=== PATIENT | female | born 1985 | race Caucasian/White ===

== ENCOUNTER → 2018-02-13 | Outpatient (CLI) | payer BC ==
--- NOTE | 2018-02-13 12:18 | RADIOLOGY REPORT (SQ) ---
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 TECHNIQUE: Multiplanar imaging includes non-contrasted T1, T2, FLAIR, diffusion with ADC map and pos t gadolinium contrast sequences. Additional thin slice images with and without gadolinium contrast a cquired of the orbits. Images stored on PACS. CONTRAST TYPE AND DOSE: 15 mL Dotarem. RENAL FUNCTION: None required. The patient is less than 50 years old. LIMITATIONS: None. FINDINGS: ANATOMY: No anomalies. Normal vascular flow voids. Pituitary fossa normal. CSF SPACES: Normal in size and contour. CEREBRUM: Sulci and gyri normal in size and contour. Normal white matter signal on FLAIR imaging. N o hemorrhage. No edema, masses or mass effect. No enhancing lesions. POSTERIOR FOSSA: No signal alteration. No hemorrhage. No edema, masses or mass effect. Internal juli tory canals, cerebello-pontine angles, mastoids normal. No enhancing lesions. DIFFUSION IMAGING: Negative for acute or sub-acute infarction. ORBITS: No masses. Globes normal. Extraocular muscles and optic nerves normal. Orbital fat clear. No inflammatory changes or enhancement. PARANASAL SINUSES: No fluid levels. Mucosa normal. OTHER: No other significant finding. IMPRESSION: NORMAL MRI OF THE BRAIN AND ORBITS WITHOUT AND WITH INTRAVENOUS GADOLINIUM CONTRAST. TECHNICAL DOCUMENTATION: JOB ID: [id number] [employer]- All Rights Reserved Reading location - IP/workstation name: [facility]
== END ==
LOC: RAD 10:46
PROVIDERS: ATTEND Ophthalmology
DX: H47.10 Unspecified papilledema (principal)
CPT/HCPCS: 70553; A9576

== ENCOUNTER → 2018-05-22 | Day surgery (SDC) | payer BC | LOC: RAD 07:55 | PROVIDERS: ATTEND Psychiatry & Neurology Neurology | DX: R69 Illness, unspecified (principal) ==

== ENCOUNTER 2018-06-14 07:52 | Day surgery (SDC) | payer BC ==
[2018-06-14 08:51] LABS: INTERNATIONAL RATION (INR) 0.91; PARTIAL THROMBOPLASTIN TIME 29.3 SEC (23.5-35.8); PROTHROMBIN TIME 12.7 SEC (11.4-15.4)
[2018-06-14 11:09] LABS: ABSOLUTE EOSINOPHILS # (AUTO) 0.3 10^3/uL (0.0-0.6); ABSOLUTE LYMPHOCYTES (AUTO) 1.9 10^3/uL (0.5-4.7); ABSOLUTE MONOCYTES (AUTO) 0.5 10^3/uL (0.1-1.4); ABSOLUTE NEUT (AUTO) 4.2 10^3/uL (1.7-8.2); BASOPHILS % (AUTO) 0.3 % (0-2); EOSINOPHILS % (AUTO) 4.3 % (0-6); HEMATOCRIT 35.6 % (36.0-47.0); MEAN CORPUSCULAR HEMOGLOBIN 29.2 pg (27.0-33.4); MEAN CORPUSCULAR HGB CONC 33.7 g/dL (32.0-36.0); MEAN CORPUSCULAR VOLUME 87 fl (80-97); MONOCYTES % (AUTO) 7.2 % (3-13); PLATELET COUNT 248 10^3/uL (150-450); RED BLOOD COUNT 4.11 10^6/uL (3.72-5.28); RED CELL DISTRIBUTION WIDTH 14.6 % (11.5-14.0); SEGMENTED NEUTROPHILS % (AUTO) 60.2 % (42-78); TOTAL CELLS COUNTED % (AUTO) 100 %; WHITE BLOOD COUNT 6.9 10^3/uL (4.0-10.5)
--- NOTE | 2018-06-14 11:50 | RADIOLOGY REPORT (SQ) ---
EXAM DESCRIPTION: LUMBAR PUNCTURE; FLUORO/NEEDLE PLACEMENT/SPINE COMPLETED DATE/TIME: 06/14/2018 10:14 am REASON FOR STUDY: BENIGN INTRACRANIAL HYPERTENSION COMPARISON: None. FLUOROSCOPY TIME: 0.1 minutes of fluoroscopy was used. 1 Images saved to PACS. TECHNIQUE: Fluoroscopic guided lumbar puncture with opening and closing pressures. LIMITATIONS: None. PROCEDURE: After written consent and assessment were obtained, the patient was brought into the fluo roscopy room and placed prone on the table. The patient's lower back was prepped in a sterile fashion and an entry site was selected under live fluoroscopic guidance. The entry site was anesthetized wit h 1% lidocaine. A 20 gauge needle was advanced through the skin and into the thecal sac at the level of L 3 -L 4 . An opening pressure of 32 units was obtained. After approximately 26 ml of CSF was drai veena, a closing pressure of 17 units was obtained. The needle was removed and a sterile bandage was pl aced of the site. Specimens were sent to the lab for testing. A fluoroscopic spot image was saved to PACS confirming level access. FINDINGS: Clear CSF IMPRESSION: Lumbar puncture under fluoroscopy. No immediate complication. COMMENT: Patient medication list reviewed: Or Quality ID [id number]: Final reports for procedures using fluoroscopy that document radiation exposure indic es, or exposure time and number of fluorographic images (if radiation exposure indices are not availa ble) TECHNICAL DOCUMENTATION: Job ID: [id number] [employer]- All Rights Reserved Reading location - IP/workstation name: [email or web address] [id number]
--- NOTE | 2018-06-14 11:50 | RADIOLOGY REPORT (SQ) ---
EXAM DESCRIPTION: LUMBAR PUNCTURE; FLUORO/NEEDLE PLACEMENT/SPINE COMPLETED DATE/TIME: 06/14/2018 10:14 am REASON FOR STUDY: BENIGN INTRACRANIAL HYPERTENSION COMPARISON: None. FLUOROSCOPY TIME: 0.1 minutes of fluoroscopy was used. 1 Images saved to PACS. TECHNIQUE: Fluoroscopic guided lumbar puncture with opening and closing pressures. LIMITATIONS: None. PROCEDURE: After written consent and assessment were obtained, the patient was brought into the fluo roscopy room and placed prone on the table. The patient's lower back was prepped in a sterile fashion and an entry site was selected under live fluoroscopic guidance. The entry site was anesthetized wit h 1% lidocaine. A 20 gauge needle was advanced through the skin and into the thecal sac at the level of L 3 -L 4 . An opening pressure of 32 units was obtained. After approximately 26 ml of CSF was drai veena, a closing pressure of 17 units was obtained. The needle was removed and a sterile bandage was pl aced of the site. Specimens were sent to the lab for testing. A fluoroscopic spot image was saved to PACS confirming level access. FINDINGS: Clear CSF IMPRESSION: Lumbar puncture under fluoroscopy. No immediate complication. COMMENT: Patient medication list reviewed: Or Quality ID [id number]: Final reports for procedures using fluoroscopy that document radiation exposure indic es, or exposure time and number of fluorographic images (if radiation exposure indices are not availa ble) TECHNICAL DOCUMENTATION: Job ID: [id number] [employer]- All Rights Reserved Reading location - IP/workstation name: [email or web address] [id number]
[2018-06-14 11:54] LABS: GLUCOSE,CSF 53 mg/dL (40-70); PROTEIN,CSF 41 mg/dL (12-60)
[2018-06-14 12:11] LABS: APPEARANCE ALL TUBES CLEAR; COLOR ALL TUBES COLORLESS; CSF TOTAL VOLUME 26.3 CC; CSF TUBE NUMBER 3; RED BLOOD CELL,CSF 13 /uL (0-10); VOLUME TUBE 4 7.3 CC
[2018-06-14 12:12] LABS: WHITE BLOOD CELL,CSF 3 /uL (0-5)
[2018-06-14 12:51] VITALS: BP 106/66
== END 2018-06-14 12:15 | disposition home or self-care (01) ==
LOC: RAD 07:52
PROVIDERS: ATTEND Psychiatry & Neurology Neurology
DX: G93.2 Benign intracranial hypertension (principal)
CPT/HCPCS: 36415; 62270; 77003; 82945; 84157; 85025; 85610; 85730; 89050